=== PATIENT | female | born 1975 | race African-American/Black ===

== ENCOUNTER 2018-05-07 05:26 | Emergency (ER) | payer SELFPAY ==
[~2018-05-07] VITALS: Ht 165.1 cm; Wt 69.0 kg
[~2018-05-07 05:26] MED LIST: ADVIL
[2018-05-07 05:31] VITALS: BP 156/95
== END 2018-05-07 09:38 | disposition left against medical advice (07) ==
LOC: ER 05:26
DX: Z53.21 Procedure and treatment not carried out due to patient leaving prior to being seen by health care provider (principal)